=== PATIENT | female | born 1995 | race Caucasian/White ===

== ENCOUNTER 2019-06-19 21:55 | Emergency (ER) | payer OTHER ==
[~2019-06-19] VITALS: Ht 157.5 cm; Wt 58.1 kg
[2019-06-19] MEDS ORDERED: AUGMENTIN 500-1 EACH PO (22:22)
[2019-06-19] MEDS ORDERED: HYDROCODON-ACE1 EAC7 PO (22:22)
[2019-06-19 22:29] VITALS: BP 134/78
== END 2019-06-19 22:29 | disposition home or self-care (01) ==
LOC: M.ERS 21:55
DX: S60.221A Contusion of right hand, initial encounter (principal); W55.01XA Bitten by cat, initial encounter; Y93.89 Activity, other specified; Y92.89 Other specified places as the place of occurrence of the external cause; Y99.8 Other external cause status